=== PATIENT | female | born 1935 | race Caucasian/White ===

== ENCOUNTER → 2017-02-26 | Outpatient (CLI) | payer MEDICARE, BC ==
[~2017-02-26] MED LIST: ASPIR 8181 M1 PO; CALCIUM500 M4 PO; CALCIUM600 MG PO; CALTRATE 600 +1 EAC1 PO; CELECOXIB200 MG PO; DOCUSATE SODIU100 MG PO; GLUCOPHAGE1000 MG PO; GLUCOPHAGE500 MG PO; GLUCOSAMINE &1 EAC1 PO; GLUCOSAMINE &1 EACH PO; HYDROCHLOROTHIA25 MG PO; HYDROCODON-ACE1 EAC7 PO; IRON325 M1 PO; KEFLEX500 MG PO; LANTUS 3 M100 UNITS1 SC; LANTUS100 UNIT/1 SQ; LEVOTHROID,S0.112 MG PO; LIDOCAINE700 MG TD; LOVENOX40 MG/0.4 SC; METFORMIN HCL500 MG PO; MULTIVITAMIN1 EAC1 PO; NORVASC5 MG PO; NOVOLOG PE100 UNITS/ SC; ONE DAILY TABL1 EACH PO; SYNTHROID112 MCG PO; VASOTEC20 MG PO
== END | disposition home or self-care (01) ==
LOC: CDC 08:54
DX: I45.10 Unspecified right bundle-branch block (principal); R94.31 Abnormal electrocardiogram [ECG] [EKG]; M48.06 Spinal stenosis, lumbar region
CPT/HCPCS: 93000

== ENCOUNTER 2017-03-28 20:21 | Inpatient (IN) | payer OTHER, BC ==
[~2017-03-28] VITALS: Ht 160 cm; Wt 84.6 kg
[2017-03-28 21:02] LABS: HEMATOCRIT 34.3 % (36.0-46.0); MCH 26.8 PG (29.0-34.0); MCHC 32.4 G/DL (30.0-36.0); MCV 82.9 FL (83-99); MEAN PLAT.VOLUME 10.3 uM^3 (9.5-12.4); PLATELET COUNT 263 K/uL (156-360); RBC DIS.WIDTH-CV 13.2 % (11.8-14.6); RBC DIS.WIDTH-SD 39.9 % (39-53); RED BLOOD COUNT 4.14 M/uL (3.80-5.20); WHITE BLOOD COUNT 13.3 K/uL (4.1-10.2)
[2017-03-28 21:08] LABS: CHLORIDE 95 mEq/L (99-109); SODIUM 132 mEq/L (136-147)
[2017-03-28 21:10] LABS: GLUCOSE 152 mg/dL (70-99)
[2017-03-28 21:12] LABS: ANION GAP 9 MEQ/L (2-14)
[2017-03-28 21:14] LABS: GFR ESTIMATE (CALCULATED) 38 mL/min/
[2017-03-28 21:15] LABS: UREA NITROGEN (BUN) 21 mg/dL (9-23)
[2017-03-28 23:08] LABS: ADD MIUA? NO; BILIRUBIN NEGATIVE; BLOOD NEGATIVE; COLOR YELLOW ((YELLOW)); GLUCOSE (STRIP) NEGATIVE; KETONES NEGATIVE; LEUKOCYTES NEGATIVE; NITRITE NEGATIVE; PROTEIN (STRIP) NEGATIVE; SPECIFIC GRAVITY 1.009 (1.000-1.030); UCUL ADDED? NO; UROBILINOGEN 0.2 MG/DL (0.2-1.0)
[2017-03-29] VITALS (7 sets, daily range): BP systolic 130–163; BP diastolic 65–75
[2017-03-29] MEDS ORDERED: METFORMIN HCL1000 MG PO (00:33)
[2017-03-29] MEDS ORDERED: HYDROCODON-ACE1 EAC7 PO (00:33)
[2017-03-29] MEDS ORDERED: TYLENOL EXTRA500 MG PO (00:35)
[2017-03-29] MEDS ORDERED: LO-DOSE ASPIRIN81 M2 PO (00:35)
[2017-03-29] MEDS ORDERED: ZOFRAN4 MG PO (00:35)
[2017-03-29] MEDS ORDERED: TIZANIDINE HCL4 MG PO (00:35)
[2017-03-29 07:07] LABS: HEMATOCRIT 34.5 % (36.0-46.0); MCH 26.6 PG (29.0-34.0); MCHC 32.5 G/DL (30.0-36.0); MCV 81.9 FL (83-99); MEAN PLAT.VOLUME 10.4 uM^3 (9.5-12.4); PLATELET COUNT 262 K/uL (156-360); RBC DIS.WIDTH-CV 12.9 % (11.8-14.6); RBC DIS.WIDTH-SD 38.5 % (39-53); RED BLOOD COUNT 4.21 M/uL (3.80-5.20); WHITE BLOOD COUNT 10.4 K/uL (4.1-10.2)
[2017-03-29 07:58] LABS: ALKALINE PHOSPHATASE 68 IU/L (3-129); ANION GAP 9 MEQ/L (2-14); CHLORIDE 97 MEQ/L (99-109); GFR ESTIMATE (CALCULATED) 46 mL/min/; GLUCOSE 176 mg/dL (70-99); POTASSIUM 4.4 MEQ/L (3.7-5.4); SAMPLE HEMOLYSIS CHECK 0; SAMPLE ICTERIC CHECK 0; SAMPLE LIPEMIA CHECK 0; SODIUM 134 MEQ/L (136-147); TOTAL BILIRUBIN 0.5 MG/DL (0.0-1.0); UREA NITROGEN (BUN) 19 mg/dL (9-23)
[2017-03-29 21:41] LABS: POINT-OF-CARE METER ID UU14149397
[2017-03-30 03:45] LABS: POINT-OF-CARE METER ID UU14149397
[2017-03-30 04:01] VITALS: BP 169/77
[2017-03-30 04:30] VITALS: BP 140/65
[2017-03-30 05:40] LABS: EOSINOPHIL (%) 0 % (0-5); HEMATOCRIT 31.4 % (36.0-46.0); IMMATURE GRANULOCYTE (%) 0.6 % (0.0-0.7); IMMATURE GRANULOCYTE COUNT 0.1 K/uL; INSTRUMENT ABS NEUTROPHIL CT 7.3 K/uL; LYMPHOCYTE COUNT 0.7 K/uL (1.0-2.8); MCH 26.8 PG (29.0-34.0); MCHC 32.8 G/DL (30.0-36.0); MCV 81.6 FL (83-99); MEAN PLAT.VOLUME 10.5 uM^3 (9.5-12.4); MONOCYTE (%) 3.3 % (3-12); MONOCYTE COUNT 0.3 K/uL (0-0.8); NEUTROPHIL (%) 88.3 % (45-76); NEUTROPHIL COUNT 7.3 K/uL (1.8-6.4); PLATELET COUNT 283 K/uL (156-360); RBC DIS.WIDTH-CV 12.8 % (11.8-14.6); RBC DIS.WIDTH-SD 38.2 % (39-53); RED BLOOD COUNT 3.85 M/uL (3.80-5.20); WHITE BLOOD COUNT 8.3 K/uL (4.1-10.2)
[2017-03-30 05:51] LABS: CHLORIDE 100 mEq/L (99-109); POTASSIUM 4.1 mEq/L (3.7-5.4); SODIUM 136 mEq/L (136-147)
[2017-03-30 05:53] LABS: GLUCOSE 215 mg/dL (70-99)
[2017-03-30 05:54] LABS: ANION GAP 8 MEQ/L (2-14)
[2017-03-30 05:57] LABS: GFR ESTIMATE (CALCULATED) 50 mL/min/
[2017-03-30 05:58] LABS: UREA NITROGEN (BUN) 30 mg/dL (9-23)
[2017-03-30 06:19] LABS: POINT-OF-CARE METER ID UU14149397
[2017-03-30 08:06] VITALS: BP 187/77
[2017-03-30 12:06] VITALS: BP 188/75
[2017-03-30] MEDS ORDERED: AZITHROMYCIN500 M1 PO (14:12)
[2017-03-30] MEDS ORDERED: NORVASC5 MG PO (14:12)
[2017-03-30] MEDS ORDERED: ADVAIR HFA120 INHALA IH (14:13)
[2017-03-30] MEDS ORDERED: PREDNISONE20 MG PO (14:14)
[2017-03-30] MEDS ORDERED: PROAIR RESPICL90 MCG IH (14:14)
[2017-03-30 16:57] VITALS: BP 157/70
== END 2017-03-30 17:02 | disposition home or self-care (01) | DRG 190 ==
LOC: EME 20:21 → EDOF 03-29 01:04 → 3EAST 03-29 03:32
PROVIDERS: Internal Medicine
DX: J44.1 Chronic obstructive pulmonary disease with (acute) exacerbation (principal); J96.01 Acute respiratory failure with hypoxia; N17.9 Acute kidney failure, unspecified; E87.1 Hypo-osmolality and hyponatremia; D62 Acute posthemorrhagic anemia; I10 Essential (primary) hypertension; E11.9 Type 2 diabetes mellitus without complications; E89.0 Postprocedural hypothyroidism; R33.9 Retention of urine, unspecified; K44.9 Diaphragmatic hernia without obstruction or gangrene; J98.4 Other disorders of lung; M19.90 Unspecified osteoarthritis, unspecified site; E66.01 Morbid (severe) obesity due to excess calories; Z96.652 Presence of left artificial knee joint; Z79.84 Long term (current) use of oral hypoglycemic drugs; Z87.891 Personal history of nicotine dependence; Z79.4 Long term (current) use of insulin; Z79.82 Long term (current) use of aspirin; Z68.33 Body mass index [BMI] 33.0-33.9, adult; Z99.81 Dependence on supplemental oxygen
CPT/HCPCS: 71010; 71275; 80048; 80053; 81003; 82948; 85025; 85027; 87040; 87801; 94640; 94640 76; 94799; 99202; 99281; 99284; J1644; J1815; J2930; J7030; J7512

== ENCOUNTER 2017-04-07 09:38 | Emergency (ER) | payer OTHER, BC ==
[~2017-04-07] VITALS: Ht 160 cm; Wt 80.4 kg
[~2017-04-07 09:38] MED LIST changes: +ADVAIR HFA120 INHALA IH; +AZITHROMYCIN500 M1 PO; +LO-DOSE ASPIRIN81 M2 PO; +METFORMIN HCL1000 MG PO; +PREDNISONE20 MG PO; +PROAIR RESPICL90 MCG IH; +TIZANIDINE HCL4 MG PO; +TYLENOL EXTRA500 MG PO; +ZOFRAN4 MG PO
[2017-04-07 11:17] LABS: HEMATOCRIT 38.3 % (36.0-46.0); MCH 26.6 PG (29.0-34.0); MCHC 32.4 G/DL (30.0-36.0); MCV 82.2 FL (83-99); MEAN PLAT.VOLUME 9.4 uM^3 (9.5-12.4); PLATELET COUNT 356 K/uL (156-360); RBC DIS.WIDTH-CV 13.5 % (11.8-14.6); RBC DIS.WIDTH-SD 40.2 % (39-53); RED BLOOD COUNT 4.66 M/uL (3.80-5.20)
[2017-04-07 11:22] LABS: CHLORIDE 99 mEq/L (99-109); POTASSIUM 4.8 mEq/L (3.7-5.4); SODIUM 132 mEq/L (136-147)
[2017-04-07 11:24] LABS: GLUCOSE 103 mg/dL (70-99)
[2017-04-07 11:26] LABS: ANION GAP 10 MEQ/L (2-14); TOTAL BILIRUBIN 0.3 mg/dL (0.0-1.0)
[2017-04-07 11:28] LABS: ALKALINE PHOSPHATASE 70 IU/L (3-129); GFR ESTIMATE (CALCULATED) 35 mL/min/
[2017-04-07 11:29] LABS: UREA NITROGEN (BUN) 12 mg/dL (9-23)
[2017-04-07 11:31] LABS: LIPASE 37 U/L (1.0-51.0)
[2017-04-07 13:10] LABS: ADD MIUA? NO; BILIRUBIN NEGATIVE; BLOOD NEGATIVE; COLOR STRAW ((YELLOW)); GLUCOSE (STRIP) NEGATIVE; KETONES NEGATIVE; LEUKOCYTES NEGATIVE; NITRITE NEGATIVE; PROTEIN (STRIP) NEGATIVE; SPECIFIC GRAVITY 1.006 (1.000-1.030); UCUL ADDED? NO; UROBILINOGEN 0.2 MG/DL (0.2-1.0)
[2017-04-07] MEDS ORDERED: ZITHROMAX250 MG PO (16:31)
[2017-04-07 16:54] VITALS: BP 153/76
== END 2017-04-07 17:10 | disposition home or self-care (01) ==
LOC: EME 09:38
PROVIDERS: Nurse Practitioner Family
DX: J06.9 Acute upper respiratory infection, unspecified (principal); R50.9 Fever, unspecified; R33.9 Retention of urine, unspecified; E11.9 Type 2 diabetes mellitus without complications; I10 Essential (primary) hypertension; Z87.891 Personal history of nicotine dependence; Z79.4 Long term (current) use of insulin; Z79.82 Long term (current) use of aspirin
CPT/HCPCS: 71020; 72158; 80053; 81003; 83690; 85027; 99281; 99285; J7030